=== PATIENT | male | born 1950 | race Hispanic/Latino ===

== ENCOUNTER 2018-06-16 09:49 | Inpatient (IN) | payer MEDICARE ==
[~2018-06-16] VITALS: Ht 175.3 cm; Wt 118.9 kg
--- NOTE | 2018-06-16 10:23 | NUR ---
SHANON NAVA IN TO [facility].
[2018-06-16 10:38] LABS: BASOPHILS # (AUTO) 0.1 (0.0-0.1); EOSINOPHILS # (AUTO) 0.2 (0.0-0.4); EOSINOPHILS % 3.8 % (0.0-6.0); HEMATOCRIT 42.7 % (38.2-49.6); HEMOGLOBIN 14.4 g/dL (14.0-18.0); LYMPHOCYTES # (AUTO) 0.9 (1.0-3.2); LYMPHOCYTES % 17.8 % (18.0-39.1); MEAN CORPUSCULAR HEMOGLOBIN 32.3 pg (28-32); MEAN CORPUSCULAR HGB CONC 33.7 g/dL (31-35); MEAN CORPUSCULAR VOLUME 95.7 fL (81-99); MONOCYTES # (AUTO) 0.3 (0.2-0.8); MONOCYTES % 6.7 % (4.4-11.3); NEUTROPHILS # (AUTO) 3.5 (2.1-6.9); NEUTROPHILS % 70.3 % (38.7-80.0); PLATELET COUNT 208 x10e3/uL (140-360); RED BLOOD COUNT 4.46 x10e6/uL (4.3-5.7); RED CELL DISTRIBUTION WIDTH 14.2 % (11.7-14.4)
[2018-06-16] MEDS ORDERED: LISINOPRIL30 MG PO (10:50)
[2018-06-16] MEDS ORDERED: ATENOLOL25 MG PO (10:50)
--- NOTE | 2018-06-16 10:50 | NUR ---
RADIOLOGY AT BEDSIDE FOR CXR AT THIS TIME/
[2018-06-16 10:57] LABS: CLARITY,URINE SL CLOUDY (CLEAR); COLOR,URINE YELLOW (YELLOW); KETONES,URINE NEGATIVE (NEGATIVE); LEUKOCYTE ESTERASE ,URINE NEGATIVE (NEGATIVE); NITRITE,URINE NEGATIVE (NEGATIVE); PROTEIN,URINE DIPSTICK NEGATIVE (NEGATIVE)
[2018-06-16 10:58] LABS: BILIRUBIN,URINE NEGATIVE (NEGATIVE); URINE UROBILINOGEN 0.2 mg/dL (0.2 - 1)
[2018-06-16 10:59] LABS: INR 0.94; PROTHROMBIN TIME 13.1 seconds (11.9-14.5)
[2018-06-16 11:00] LABS: PARTIAL THROMBOPLASTIN TIME 31.5 seconds (23.8-35.5)
[2018-06-16] MEDS ORDERED: ASPIRIN 81 MG CHEW TAB PO ONE (11:00)
[2018-06-16 11:05] LABS: ALANINE AMINOTRANSFERASE 45 IU/L (0-55); ALBUMIN 3.3 g/dL (3.5-5.0); ALBUMIN/GLOBULIN RATIO 1.2 (0.8-2.0); ALKALINE PHOSPHATASE 79 IU/L (40-150); ANION GAP 11.2 mmol/L (8-16); BLOOD UREA NITROGEN 13 mg/dL (7-26); BUN/CREATININE RATIO 17 (6-25); CALCIUM 8.9 mg/dL (8.4-10.2); CARBON DIOXIDE 23 mmol/L (22-29); CHLORIDE 109 mmol/L (98-107); CREATINE KINASE 89 IU/L (30-200); CREATININE, SERUM 0.77 mg/dL (0.72-1.25); EST GLOMERULAR FILTRATION RATE > 60 ML/MIN (60-); GLUCOSE 115 mg/dL (74-118); POTASSIUM 4.2 mmol/L (3.5-5.1); SODIUM 139 mmol/L (136-145)
[2018-06-16 11:14] LABS: EPITHELIAL CELLS,URINE RARE /LPF; WBC,URINE (MAN) 0-5 /HPF (0-5)
[2018-06-16] MEDS ORDERED: HYDRALAZINE HCL 20 MG/ML VIAL IV ONE (11:15)
[2018-06-16] MEDS ORDERED: HYDRALAZINE HCL 100 MG TABLET PO ONE (14:00)
--- NOTE | 2018-06-16 14:40 | Diagnostic Imaging Report ---
EXAM: CHEST SINGLE (PORTABLE) DATE: 06/16/2018 10:26 AM INDICATION: Shortness of breath COMPARISON: None FINDINGS: Lines and tubes: None Prominent cardiac silhouette, likely accentuated by low lung volumes. Mild atelectasis at the left lung base. No pulmonary consolidation, pleural effusion or pneumothorax. Upper abdomen unremarkable. No acute bony abnormality. IMPRESSION: Mild cardiomegaly. Focal atelectasis at the left lung base. No pulmonary consolidation or pleural effusion. Signed by: Dr. Rex Panda M.D. on 06/16/2018 2:37 PM
--- NOTE | 2018-06-16 15:21 | Diagnostic Imaging Report ---
EXAM: CT Chest WITH contrast 06/16/2018 11:53 AM INDICATION: Shortness of breath COMPARISON: Chest x-ray, 06/16/2018; CT abdomen/pelvis, 07/29/2009 (report only; images are not available on PACS) TECHNIQUE: Chest was scanned utilizing a multidetector helical scanner from the lung apex through the level of the diaphragm after administration of IV contrast. Thin section reconstructions were obtained with special concentration on the pulmonary arteries. Coronal and sagittal reformations were obtained. Pulmonary embolism protocol was performed. Dose modulation, iterative reconstruction, and/or weight based adjustment of the mA/kV was utilized to reduce the radiation dose to as low as reasonably achievable IV CONTRAST: 100 cc Isovue-370 RADIATION DOSE: Total DLP: 656.20 mGy*cm Estimated effective dose: (DLP x 0.014 x size factor) mSv COMPLICATIONS: None FINDINGS: LINES/ TUBES: None. LUNGS AND AIRWAYS: No filling defect is identified within the pulmonary arteries to the segmental level. There are patchy airspace opacities in the lower lobes which may represent atelectasis or interstitial edema. Trachea and main bronchi are clear. There is bilateral perihilar bronchial wall thickening. PLEURA: There is a small pleural effusion on the right and trace pleural fluid on the left. HEART AND MEDIASTINUM: The thyroid gland is normal. No mediastinal, hilar or axillary lymphadenopathy. There are scattered subcentimeter nodes in the mediastinum and a 1.5 cm node in the right hilum. A 1.5 cm lymph node in the inferior mediastinum adjacent to the distal esophagus appears stable from previous abdominal CT report. These may be reactive. There is mild cardiomegaly.. There is no pericardial effusion. The thoracic aorta is atherosclerotic with scattered calcified plaque. No dilatation of the thoracic aorta. The main pulmonary artery is not dilated and there are no filling defects in the main pulmonary arteries. UPPER ABDOMEN: Included portions of the liver, spleen, pancreas, and adrenals and kidneys show no focal abnormality. There is a small hiatus hernia. Contrast refluxes inferiorly from the right atrium into the hepatic veins. BONES: No acute or suspicious bony lesion. Degenerative changes are seen in the thoracic spine. SOFT TISSUES: Superficial surrounding soft tissue unremarkable. IMPRESSION: 1. No CT evidence for acute pulmonary embolism. No dilatation of the main pulmonary artery. 2. Patchy airspace opacities in both lungs, likely representing interstitial edema. There is a small right and trace left pleural effusion. Mild cardiomegaly. Contrast reflux from the right atrium downward into pulmonary veins suggests elevated right heart pressures or fluid overload. 3. Nonspecific mildly prominent lymph nodes in the right hilum and the lower paraesophageal mediastinum. Staff: Amarilys Signed by: Dr. Rex Panda M.D. on 06/16/2018 3:18 PM
--- OUTSIDE RECORDS SUMMARY | 2018-06-16 16:19 | XMS REPORT ---
Author Author [facility] Address Unknown Phone Unavailable Care Team Providers Care Farm Demonstrator Name Role Phone Nikolas WHEELER Unavailable Unavailable Problems This patient has no known problems. Allergies, Adverse Reactions, Alerts This patient has no known allergies or adverse reactions. Medications This patient has no known medications. Results Test Description Test Time Test Comments Text Results Atomic Results Result Comments CHEST SINGLE (PORTABLE) 2018-06-16 14:35:00 [place] [address] Patient Name: JENNIFER JAIMES MR #: [id number] : 1950 Age/Sex: 68/M Req #: [id number] Adm Physician: Ordered by: BRANDY CARDENAS MORTAR CARRIER Report #: [id number] Location: ER Room/Bed: Procedure: [id number] DX/CHEST SINGLE (PORTABLE) Exam Date: 06/16/18 Exam Time: 1045 REPORT STATUS: Signed EXAM: CHEST SINGLE (PORTABLE) DATE: 06/16/2018 10:26 AM INDICATION: Shortness of breath COMPARISON: None FINDINGS: Lines and tubes: None Prominent cardiac silhouette, likely accentuated by low lung volumes. Mild atelectasis at the left lung base. No pulmonary consolidation, pleural effusion or pneumothorax. Upper abdomen unremarkable. No acute bony abnormality. IMPRESSION: Mild cardiomegaly. Focal atelectasis at the left lung base. No pulmonary consolidation or pleural effusion. Signed by: Dr. Carmella Barajas M.D. on 06/16/2018 2:37 PM Dictated By: CARMELLA BARAJAS MD 36 Transcribed By: NELIA on 06/16/181436 COPY TO: BRANDY CARDENAS NP CT CHEST W 2018-06-16 14:34:00 [place] [address] Patient Name: JENNIFER JAIMES MR #: [id number] : 1950 Age/Sex: 68/M Req #: [id number] Adm Physician: Ordered by: BRANDY CARDENAS NP Report #: [id number] Location: ER Room/Bed: Procedure: [id number] CT/CT CHEST W Exam Date: 06/16/18 Exam Time: 1320 REPORT STATUS: Signed EXAM: CT Chest WITH contrast 06/16/2018 11:53 AM INDICATION: Shortness of breath COMPARISON: Chest x-ray, 06/16/2018; CT abdomen/pelvis, 07/29/2009 (report only; images are not available on PACS) TECHNIQUE: Chest was scanned utilizing a multidetector helical scanner from the lung apex through the level of the diaphragm after administration of IV contrast. Thin section reconstructions were obtained with special concentration on the pulmonary arteries. Coronal and sagittal reformations were obtained. Pulmonary embolism protocol was performed. Dose modulation, iterative reconstruction, and/or weight based adjustment of the mA/kV was utilized to reduce the radiation dose to as low as reasonably achievable IV CONTRAST: 100 cc Isovue-370 RADIATION DOSE: Total DLP: 656.20 mGy*cm Estimated effective dose: (DLP x 0.014 x size factor) mSv COMPLICATIONS: None FINDINGS: LINES/ TUBES: None. LUNGS AND AIRWAYS: No filling defect is identified within the pulmonary arteries to the segmental level. There are patchy airspace opacities in the lower lobes which may represent atelectasis or interstitial edema. Trachea and main bronchi are clear. There is bilateral perihilar bronchial wall thickening. PLEURA: There is a small pleural effusion on the right and trace pleural fluid on the left. HEART AND MEDIASTINUM: The thyroid gland is normal. No mediastinal, hilar or axillary lymphadenopathy. There are scattered subcentimeter nodes in the mediastinum and a 1.5 cm node in the right hilum. A 1.5 cm lymph node in the inferior mediastinum adjacent to the distal esophagus appears stable from previous abdominal CT report. These may be reactive. There is mild cardiomegaly.. There is no pericardial effusion. The thoracic aorta is atherosclerotic with scattered calcified plaque. No dilatation of the thoracic aorta. The main pulmonary artery is not dilated and there are no filling defects in the main pulmonary arteries. UPPER ABDOMEN: Included portions of the liver, spleen, pancreas, and adrenals and kidneys show no focal abnormality. There is a small hiatus hernia. Contrast refluxes inferiorly from the right atrium into the hepatic veins. BONES: No acute or suspicious bony lesion. Degenerative changes are seen in the thoracic spine. SOFT TISSUES: Superficial surrounding soft tissue unremarkable. IMPRESSION: 1. No CT evidence for acute pulmonary embolism. No dilatation of the main pulmonary artery. 2. Patchy airspace opacities in both lungs, likely representing interstitial edema. There is a small right and trace left pleural effusion. Mild cardiomegaly. Contrast reflux from the right atrium downward into pulmonary veins suggests elevated right heart pressures or fluid overload. 3. Nonspecific mildly prominent lymph nodes in the right hilum and the lower paraesophageal mediastinum. Staff: Amarilys Signed by: Dr. Carmella Barajas M.D. on 06/16/2018 3:18 PM Dictated By: CARMELLA BARAJAS MD [id number] Transcribed By: NELIA on 06/16/18 0415 COPY TO: BRANDY CARDENAS NP
[2018-06-16] MEDS ORDERED: SODIUM CHLORIDE 0.9% 50ML 50 ML ONE (16:23)
[2018-06-16] MEDS ORDERED: IOPAMIDOL 370 MG/ML 200 ML INFUS..BTL INJ ONE (16:23)
[2018-06-16] MEDS ORDERED: FUROSEMIDE INJ 10 MG/ML 4 ML VIAL IV SCH (17:00)
[2018-06-16] MEDS: FUROSEMIDE INJ 10 MG/ML 2 ML VIAL IV SCH (17:25)
[2018-06-16] MEDS ORDERED: NIFEDIPINE 10 MG CAP PO STA (18:03)
[2018-06-16] MEDS ORDERED: HYDRALAZINE HCL 20 MG/ML VIAL IV PRN (18:15)
[2018-06-16] MEDS ORDERED: NIFEDIPINE CR 30 MG TAB PO ONE (18:15)
--- NOTE | 2018-06-16 19:50 | NUR ---
Patient arrived to the unit via wheelchair from ED dept as new admit. Patient alert and oriented x3. Ambulatory in room prn. Diagnoses of CHF and A-fib. IV saline locked. On telemetry. Will monitor pt closely.
[2018-06-16 20:00] VITALS: BP 163/104
--- NOTE | 2018-06-16 21:00 | NUR ---
Nurse (Julius) spoke with Dr. Tarango (cardio) over the phone to notify that Dr. Arguello was consulted to see pt for reasons of CHF and A-fib. ordered Echo in AM and Metorprolol as needed.
[2018-06-16] MEDS: METOPROLOL TARTRATE INJ 1 MG/ML VIAL IV PRN (23:08)
[2018-06-17] VITALS (12 sets, daily range): BP systolic 112–151; BP diastolic 72–106
[2018-06-17 02:17] LABS: CREATINE KINASE MB 1.7 ng/mL (0-5.0)
[2018-06-17] MEDS ORDERED: NIFEDIPINE CR 30 MG TAB PO SCH (09:00)
[2018-06-17] MEDS ORDERED: NIFEDIPINE 10 MG CAP PO SCH (09:00)
[2018-06-17] MEDS ORDERED: METOPROLOL TARTRATE 25 MG TAB PO SCH (09:00)
[2018-06-17] MEDS: LISINOPRIL 2.5 MG TAB PO SCH (09:30)
[2018-06-17] MEDS: FUROSEMIDE INJ 10 MG/ML 2 ML VIAL IV SCH ×2 (09:30→18:32)
[2018-06-17 09:41] LABS: CREATINE KINASE MB 1.5 ng/mL (0-5.0)
[2018-06-17] MEDS ORDERED: MIDAZOLAM HCL 2 MG/2 ML VIAL ONE (11:26)
[2018-06-17] MEDS ORDERED: FENTANYL CITRATE/PF 100MCG/2 ML INJ ONE (11:27)
[2018-06-17] MEDS ORDERED: IOPAMIDOL 370 MG/ML 200 ML INFUS..BTL INJ ONE (11:27)
[2018-06-17] MEDS ORDERED: HEPARIN SOD/SOD CHLORIDE 2,000 ML ONE (11:27)
[2018-06-17] MEDS ORDERED: SODIUM CHLORIDE 0.9% 1000ML 1,000 ML ONE (11:27)
[2018-06-17] MEDS ORDERED: LIDOCAINE HCL 2% LOCAL 20 ML VIAL ONE (11:27)
--- NOTE | 2018-06-17 11:30 | NUR ---
Pt was consented for cardiac cath with Dr. Arguello for this morning. Pt has been NPO since this morning at 0700. Paperwork has been sent to [employer], per Dr Arguello.
--- NOTE | 2018-06-17 12:22 | NUR ---
1222 Received pt from tender labor Alvaro Velasquez . Identifier x2, [facility] no fix for LIfe vest evaluation. Back to baseline PERRLA Left iv at 75cchr site w/o s/s infiltraton Rt groin sheath stable No s/s bleeding.Respiration regular 98% RA Abdomen soft and non tender denies necessity to defecate or urinate. Voided 250cc Bilateral pedal pulses present bilateral 1+ x4 Pd/Dp slight swelling to feet. George Cath technologist pulled sheath stasis achieved at 1245pm (DOWN TIME TILL 1900pm)Denies CP or SOB, Report phoned to floor staff and review POC by Eva NAQVI Transported to floor care @1300pm with [employer] monitoring and RN escort on room air via hospital bed.
--- NOTE | 2018-06-17 13:00 | NUR ---
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 Pt had a left heart cath, insertion site to right groin, dressing is dry and intact. Pt denies any pain at this time. Pt is to have 6 hours bed rest, and IV fluids for X4 hours. Parole Agent for life vest came to see pt in recovery.
--- NOTE | 2018-06-17 13:40 | Consultation ---
DATE OF CONSULTATION: REASON FOR CONSULT: Atrial fibrillation. HISTORY OF PRESENT ILLNESS: Mr. Carrion is a 68-year-old gentleman with past medical history as listed below, apparently has been experiencing palpitations off and on for the last 2 to 3 weeks, which have been getting progressively worse. He also has been experiencing shortness of breath at rest and minimal exertion. He has been experiencing some discomfort in his chest, describes it as a vague pressure like sensation all across the chest, lasts for about 5-10 minutes, more so when he takes a deep breath and when he gets short winded. Since his symptoms got worse, he decided to come to the hospital. Denies any abdominal pain, vomiting, or diarrhea. He was noted to be in atrial fibrillation and was admitted to the hospital. REVIEW OF SYSTEMS: CONSTITUTIONAL: Has some fatigue and weakness. HEENT: No headache, blurring vision, seizure, or syncope. CARDIOVASCULAR: Has chest pain, has dyspnea, and some orthopnea. No PND. RESPIRATORY: No cough, fever, or expectoration. GI: No abdominal pain, vomiting, or diarrhea. : No dysuria, frequency, or incontinence. ALLERGIES: NO KNOWN DRUG ALLERGIES. MEDICATIONS: See list. PAST MEDICAL HISTORY: History of hypertension and history of "arrhythmias." PAST SURGICAL HISTORY: History of knee surgery and history of back surgery. SOCIAL HISTORY: The patient apparently has been drinking half to one bottle of wine for the last two years on a daily basis. Before that, he used to drink for more than 20 years. He does not smoke or use drugs. FAMILY HISTORY: His mother had some arrhythmias. PHYSICAL EXAMINATION: GENERAL: Obese gentleman, alert, oriented, not in obvious distress. VITAL SIGNS: Heart rate is 90, blood pressure is 135/84, respiratory rate is 20, and temperature is 96.9. HEENT: Atraumatic. NECK: No JVD, bruit, thyromegaly, or lymphadenopathy. CARDIOVASCULAR: First and second heart sounds heard. No murmurs, rubs, or gallops appreciated. CHEST: Decreased air entry at the bases. No adventitious sounds appreciated. ABDOMEN: Obese, nontender. EXTREMITIES: No edema. LABS: Sodium is 139, potassium 4.2, chloride is 109, bicarb is 23, BUN is 13, creatinine 0.7, and glucose 115. Hemoglobin is 14.4, hematocrit 42.7, platelets 208, and white count is 4.9. EKG shows atrial fibrillation at 82 beats per minute, normal axis, normal intervals, T-wave inversion in III. Troponins are 0.058, 0.062, and 0.061. BNP is 459. Chest x-ray shows mild cardiomegaly, focal atelectasis of the left base. CT chest; no CT evidence of acute pulmonary embolism, patchy airspace opacities likely interstitial edema, nonspecific mild prominent lymph nodes. IMPRESSION: 1. Atrial fibrillation. 2. Hypertension. 3. Congestive heart failure. 4. Obesity. 5. Alcoholism. PLAN: 1. IV diuresis. 2. Continue with metoprolol, LI inhibitors. Discontinue nifedipine due to CHF. 3. The patient's echocardiogram shows depressed LV function with ejection fraction 25% to 30%. 4. Anticoagulants. 5. Recommend cardiac cath and possible PCI. The patient has been explained about the procedure, risks, benefits, complications, and alternatives. He understands and agrees to it. 6. Low-salt diet and fluid restriction. 7. Further cardiac workup depending on clinical course. 8. The patient has been counseled on alcohol cessation. 9. Discussed my impression and plan of management with the patient and he understands. As always, I appreciate and thank you very much for your referrals. Fab Arguello MD SC/VÍCTOR /[id number]
[2018-06-17] MEDS: ACETAMINOPHEN 325 MG TAB PO PRN ×2 (15:46→22:38)
--- NOTE | 2018-06-17 16:59 | NUR ---
CASE MANAGEMENT INITIAL ASSESSMENT Laser Beam Cutter to bedside to discuss plan of care with patient/family. CM/SW role and care transitions discussed. Anticipated discharge plan discussed along with duration of care. CM/SW discussed patients right to make decisions in care. CM/SW work hours given. Patient lives: TIFFANY JAIMES Admit/Transfer: ER Hospital/ER visits since last admit:NONE POA/Emergency contact: TIFFANY JAIMES [phone] Current/Previous Home Health: NONE PCP/Follow-up Care: FAYE BECKWITH Current/Previous DME: NONE Medications (referring to index hospitalization or the first time you were in the hospital) a. Were changes made in your medications when you were in the hospital on [date of index hospitalization]? Yes No Not sure Explain: Note: If no or not sure, please skip to question d b. Did you understand the changes? Yes No Explain: c. Were you able to obtain your new medications right away? Yes No n/a SNF only Explain: d. Were you able to take your medications like the doctor wanted you to? TAKING MEDS PRESCRIBED BY PCP e. Did the hospital give you an accurate, easy to understand list of medications when you left? 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 Name and number was also written on the patients whiteboard. Patient verbalized understanding of discussion. CM will follow-up with ongoing discharge and transition of care needs.
[2018-06-17] MEDS: METOPROLOL TARTRATE INJ 1 MG/ML VIAL IV PRN ×2 (17:31→22:37)
[2018-06-17] MEDS: METOPROLOL TARTRATE 25 MG TAB PO SCH (18:32)
--- NOTE | 2018-06-17 19:20 | NUR ---
Received patient awake, family members at the bedside, no complaints of pain at this time, not in distress. Call light within easy reach, advised to call for assistance, will continue to monitor
[2018-06-18] VITALS (8 sets, daily range): BP systolic 128–145; BP diastolic 76–97
--- NOTE | 2018-06-18 00:03 | Operative Report ---
DATE OF PROCEDURE: 06/17/2018 SURGEON: Fab Arguello MD PROCEDURES: 1. Left heart catheterization. 2. Selective angiogram. 3. LV gram. INDICATION: Cardiomyopathy, chest pain. ANESTHESIA: 2% lidocaine for local anesthesia. Fentanyl and Versed for conscious sedation. DESCRIPTION OF PROCEDURE: After informed consent, the patient was brought to the cardiac catheterization laboratory and placed on the table. Both groins were prepped and draped in a sterile fashion. Lidocaine was injected in the right groin for local anesthesia. Right femoral artery was accessed by a Seldinger technique and a 5-St Lucian sheath was placed in the right femoral artery. Left main artery was cannulated using a JL4 5-St Lucian catheter. Coronary angiogram was performed and images were obtained in multiple views. Right coronary artery was cannulated using a 3DRC five-St Lucian catheter. Coronary angiogram was performed and images were obtained in multiple views. LV gram was performed using a pigtail catheter. The patient tolerated the procedure without any complication. REPORT: 1. Left main; normal caliber with luminal irregularities. 2. Left anterior descending; normal caliber with luminal irregularities. 3. Left circumflex; normal caliber with no significant stenosis. 4. Right coronary artery; normal caliber with luminal irregularities. 5. LV gram; diffuse hypokinesis of the left ventricle is noted. 6. Overall ejection fraction of 25% to 30%. HEMODYNAMICS: Aortic pressure is 135/90, LV pressure 135/-2, and LVEDP is 20. PLAN: Possible LifeVest and ICD down the line. Fab Arguello MD SC/MODL /[id number]
[2018-06-18] MEDS: METOPROLOL TARTRATE 25 MG TAB PO SCH ×4 (00:22→17:09)
--- NOTE | 2018-06-18 05:14 | History and Physical ---
CHIEF COMPLAINT: Palpitations. HISTORY OF PRESENT ILLNESS: This is a 68-year-old male with past medical history of hypertension and also a history of some sort of arrhythmia in the past with palpitation. Reports to the ED with complaints of 3- or 2-year history of palpitations that progressively got worse. He also experienced some shortness of breath and dyspnea on exertion. He noticed that he also had some vague chest pain that lasted 5 to 10 minutes. He also feels that he is short winded when he takes a deep breath. Due to the worsening of palpitations, he decided to come to the ED for further evaluation. REVIEW OF SYSTEMS: Pertinent Positives: Generalized weakness, fatigue, orthopnea, dyspnea on exertion, and palpitations. Pertinent Negatives: Denies any nausea, vomiting, diarrhea, dysuria, hematuria, frequency, urgency, lightheadedness, dizziness, abdominal pain, headaches, shortness of breath, cough, congestion, fever, or any other complaints. Rest of 14-point review of systems has been reviewed with the patient and is negative. ALLERGIES: NO KNOWN DRUG ALLERGIES. HOME MEDICATIONS: See med reconciliation form. PAST MEDICAL HISTORY: Hypertension, also history of possible in the past. PAST SURGICAL HISTORY: Knee surgery and back surgery. FAMILY HISTORY: Hypertension and diabetes. SOCIAL HISTORY: He does not smoke. He does drink alcohol daily for more than 20 plus years. Good social support. PHYSICAL EXAMINATION: VITAL SIGNS: Temperature is 96.9, pulse 105, respiratory rate is 20, blood pressure 144/92, and pulse ox 94% on room air. GENERAL APPEARANCE: In no acute distress. Alert and oriented x3. Cooperative on examination. HEENT: Head is normocephalic and atraumatic. Eyes, pupils equal, reactive to light bilaterally. Extraocular movements are intact bilaterally. No evidence of erythema or exudates in the posterior pharynx. Has poor dentition. NECK: Supple. Good range of motion. PULMONARY: Clear to auscultation. No wheezing, rales, or rhonchi. No crackles appreciated. CARDIOVASCULAR: Positive S1, S2. No murmurs, rubs, or gallops appreciated. ABDOMEN: Soft, nondistended, and nontender to palpation. Bowel sounds present. MUSCULOSKELETAL: Strength is 5/5 throughout. No evidence of any muscles deficits on examination. No weakness appreciated. NEUROLOGICAL: Cranial nerves II through XII grossly intact. No evidence of any neurological deficits on exam. SKIN: Intact. Warm to touch. Good cap refill. PSYCHIATRIC: Normal affect and mood. EXTREMITIES: No edema. Good range of motion throughout. LABORATORY DATA: Lab findings show white count 4.9, hemoglobin 14, hematocrit 43, and platelets of 208. Chemistries reviewed and are stable. IMPRESSION: 1. Atrial fibrillation with RVR. 2. Hypertension. 3. . 4. History of CHF. 5. Morbid obesity. 6. Chronic alcohol abuse. PLAN: At this time, the patient was scheduled for left heart catheterization . Continue symptomatic care. Continue to trend troponins. . Home medications were reviewed, which we will restart. We will get an A1c, lipid panel, and TSH level for the morning and we will continue symptomatic care. MD ARCHEI Choi/VÍCTOR /[id number]
[2018-06-18 06:11] LABS: BASOPHILS % 0.6 % (0.0-1.0); EOSINOPHILS # (AUTO) 0.1 (0.0-0.4); HEMATOCRIT 43.2 % (38.2-49.6); HEMOGLOBIN 14.7 g/dL (14.0-18.0); LYMPHOCYTES # (AUTO) 1.3 (1.0-3.2); LYMPHOCYTES % 27.3 % (18.0-39.1); MEAN CORPUSCULAR HEMOGLOBIN 32.1 pg (28-32); MEAN CORPUSCULAR VOLUME 94.3 fL (81-99); MONOCYTES # (AUTO) 0.5 (0.2-0.8); MONOCYTES % 9.7 % (4.4-11.3); NEUTROPHILS # (AUTO) 2.7 (2.1-6.9); NEUTROPHILS % 59.2 % (38.7-80.0); PLATELET COUNT 231 x10e3/uL (140-360); RED BLOOD COUNT 4.58 x10e6/uL (4.3-5.7); RED CELL DISTRIBUTION WIDTH 13.9 % (11.7-14.4)
[2018-06-18 06:25] LABS: ANION GAP 11.7 mmol/L (8-16); BLOOD UREA NITROGEN 15 mg/dL (7-26); BUN/CREATININE RATIO 18 (6-25); CALCIUM 8.6 mg/dL (8.4-10.2); CARBON DIOXIDE 27 mmol/L (22-29); CHLORIDE 100 mmol/L (98-107); CHOL/HDL RATIO 4.3 (3.9-4.7); CREATININE, SERUM 0.85 mg/dL (0.72-1.25); EST GLOMERULAR FILTRATION RATE > 60 ML/MIN (60-); GLUCOSE 99 mg/dL (74-118); POTASSIUM 3.7 mmol/L (3.5-5.1); SODIUM 135 mmol/L (136-145)
[2018-06-18 06:46] LABS: THYROID STIMULATING HORMONE 2.334 uIU/mL (0.350-4.940)
[2018-06-18] MEDS ORDERED: ATENOLOL 50 MG TAB PO SCH (09:00)
[2018-06-18] MEDS: LISINOPRIL 10 MG TAB PO SCH (09:08)
[2018-06-18] MEDS: LISINOPRIL 2.5 MG TAB PO SCH (09:09)
[2018-06-18] MEDS: FUROSEMIDE INJ 10 MG/ML 2 ML VIAL IV SCH ×2 (09:57→17:09)
[2018-06-18] MEDS: ACETAMINOPHEN 325 MG TAB PO PRN (10:03)
[2018-06-18] MEDS ORDERED: DOCUSATE SODIUM LIQD 100 MG/10 ML UDC NG SCH (10:30)
[2018-06-18] MEDS ORDERED: DOCUSATE SODIUM 100 MG CAP PO SCH (17:00)
[2018-06-18] MEDS ORDERED: DOCUSATE SODIUM 100 MG CAP PO PRN (17:00)
[2018-06-18] MEDS: RIVAROXABAN 20 MG TABLET PO SCH (17:09)
--- NOTE | 2018-06-18 18:12 | Progress Note ---
DATE: 06/18/2018 Medicine Progress Note SUBJECTIVE: The patient is reporting to do very well. Denies any chest pain at this time. The patient is getting his LifeVest today. PHYSICAL EXAMINATION: VITAL SIGNS: Temperature is 97.2, pulse 89, respiratory rate is 18, blood pressure 141/94, and his pulse ox 98% on room air. GENERAL: Not in acute distress. Alert and oriented x3. Cooperative on examination. HEENT: Head is normocephalic and atraumatic. Eyes, pupils equal, reactive to light bilaterally. Extraocular movements are intact bilaterally. Throat, no evidence of erythema or exudates in the posterior pharynx. Has poor dentition. NECK: Supple. Good range of motion. PULMONARY: Clear to auscultation. No wheezing, rales, or rhonchi. No crackles appreciated. CARDIOVASCULAR: Positive S1, S2. No murmurs, rubs, or gallops appreciated. ABDOMEN: Soft, nondistended, and nontender to palpation. Bowel sounds present. MUSCULOSKELETAL: Strength is 5/5 throughout. No evidence of any muscle deficits on examination. No weakness appreciated. NEUROLOGICAL: Cranial nerves II through XII grossly intact. No evidence of any neurological deficits on exam. SKIN: Intact. Warm to touch. Good cap refill. PSYCHIATRIC: Normal affect and mood. EXTREMITIES: No edema. Good range of motion throughout. LABORATORY DATA: Lab findings show white count 4.6, hemoglobin 14, hematocrit is 43, platelets of 231. Chemistry; sodium 135, potassium 3.7, chloride , bicarb 27, anion gap is 11, BUN is 15, creatinine is 0.85, glucose is 99. Urinalysis is found to be negative. MICROBIOLOGY: None. IMAGING STUDIES: None. IMPRESSION: 1. Atrial fibrillation with rapid ventricular response. Now rate is better controlled. 2. Diffuse coronary artery disease with ejection fraction of 25% to 30% with systolic dysfunction. 3. Morbid obesity. 4. Hypertension. 5. Chronic alcohol abuse. PLAN: At this time left heart catheterization was performed yesterday on 06/17/2018, with an EF of 25% to 30%, which he has systolic dysfunction with diffuse hypokinesis. At this time, LifeVest has been ordered and he is in the process of getting education as we speak. He will need an ICD in the future. We will continue same cardioprotective medications at this time with aspirin, statin, and beta blockade. His labs were reviewed already and his medications were reviewed. He is already on Xarelto restarted by Cardiology. MD ARCHIE Choi/VÍCTOR /[id number]
--- NOTE | 2018-06-18 19:25 | NUR ---
PATIENT IS IN STABLE CONDITION WITH NO S/S OF RESPIRATORY DISTRESS. NO PAIN VOICED. IV SALIN LOCKED. CALL LIGHT IS WITHIN REACH, PATIENT INSTRUCTED TO CALL FOR ASSISTANCE NEEDED. FAMILY MEMBER PRESENT IN ROOM. BEDSIDE REPORT COMPLETED WITH ONCOMING NURSE.
[2018-06-19] VITALS (8 sets, daily range): BP systolic 118–145; BP diastolic 60–82
[2018-06-19] MEDS: METOPROLOL TARTRATE 25 MG TAB PO SCH ×4 (00:15→17:48)
[2018-06-19 07:07] LABS: HEMATOCRIT 41.8 % (38.2-49.6); HEMOGLOBIN 14.5 g/dL (14.0-18.0); MEAN CORPUSCULAR HEMOGLOBIN 32.5 pg (28-32); MEAN CORPUSCULAR HGB CONC 34.7 g/dL (31-35); MEAN CORPUSCULAR VOLUME 93.7 fL (81-99); PLATELET COUNT 221 x10e3/uL (140-360); RED BLOOD COUNT 4.46 x10e6/uL (4.3-5.7); RED CELL DISTRIBUTION WIDTH 13.8 % (11.7-14.4)
[2018-06-19 07:25] LABS: ANION GAP 11.6 mmol/L (8-16); BLOOD UREA NITROGEN 18 mg/dL (7-26); BUN/CREATININE RATIO 23 (6-25); CALCIUM 8.4 mg/dL (8.4-10.2); CARBON DIOXIDE 26 mmol/L (22-29); CHLORIDE 102 mmol/L (98-107); EST GLOMERULAR FILTRATION RATE > 60 ML/MIN (60-); GLUCOSE 102 mg/dL (74-118); POTASSIUM 3.6 mmol/L (3.5-5.1); SODIUM 136 mmol/L (136-145)
[2018-06-19] MEDS: FUROSEMIDE INJ 10 MG/ML 2 ML VIAL IV SCH ×2 (08:57→17:48)
[2018-06-19] MEDS: LISINOPRIL 10 MG TAB PO SCH (08:57)
--- NOTE | 2018-06-19 15:30 | Progress Note ---
DATE: 06/19/2018 Medicine Progress Note SUBJECTIVE: The patient today reports that he does not want to use the LifeVest, instead he says that he works daily and he would like to have the ICD placed here. Cardiology has been aware and they are going to come talk with him and see what is the next plan of care for him. Otherwise, he is currently doing well. He is chest pain free with no other complaints. PHYSICAL EXAMINATION: VITAL SIGNS: Temperature is 95.9, pulse 82, respiration rate 18, blood pressure 137/82, pulse ox 94% on room air. GENERAL: Not in acute distress. Alert and oriented x3. Cooperative on examination. HEENT: Head is normocephalic and atraumatic. Eyes, pupils equal, reactive to light bilaterally. Extraocular movements are intact bilaterally. Throat, no evidence of erythema or exudates in the posterior pharynx. Has poor dentition. NECK: Supple. Good range of motion. PULMONARY: Clear to auscultation bilaterally. No wheezing, rales, or rhonchi. No crackles appreciated. CARDIOVASCULAR: Positive S1, S2. No murmurs, rubs, or gallops appreciated. ABDOMEN: Soft, nondistended, and nontender to palpation. Bowel sounds present. MUSCULOSKELETAL: Strength is 5/5 throughout. No evidence of any muscle deficits on examination. No weakness appreciated. NEUROLOGICAL: Cranial nerves II through XII grossly intact. No evidence of any neurological deficits on exam. SKIN: Intact. Warm to touch. Good cap refill. PSYCHIATRIC: Normal affect and mood. EXTREMITIES: No edema. Good range of motion throughout. LABORATORY DATA: Lab findings show white count of 4.5, hemoglobin of 14, hematocrit is 42, platelets are 221. Coagulation is all stable. Chemistry; sodium is 136, potassium 3.6, chloride 102, bicarb is 26, anion gap of 11, BUN is 18, creatinine is 0.8. Glucose is 23. Hemoglobin A1c 5.3, LDL 111. MICROBIOLOGY: None. IMAGING STUDIES: None. IMPRESSION: 1. Atrial fibrillation with rapid ventricular response, today with an episodes of elevated heart rate. 2. Diffuse coronary artery disease with ejection fraction of 25% to 30% with systolic dysfunction. 3. Morbid obesity. 4. Hypertension. 5. Chronic alcohol abuse. PLAN: At this time, the patient had a left heart catheterization performed on 06/17/2018, EF of 25% to 30%. The patient received the LifeVest, but now he refuses it because he says he works all the time and it is going to be very difficult being this way. He really wants to talk to Cardiology of possible ICD. At this time, Cardiology has been notified, they are going to come talk with him as well. Continue with cardioprotective meds, aspirin, statin, and beta-blockade. He is already on Xarelto per cardiac recommendations. At this time, we will await for final Cardiology recommendations and move from there. MD ARCHIE Choi/VÍCTOR /[id number]
[2018-06-19] MEDS: RIVAROXABAN 20 MG TABLET PO SCH (17:48)
--- NOTE | 2018-06-19 19:28 | NUR ---
PATIENT IS IN STABLE CONDITION WITH NO S/S OF RESPIRATORY DISTRESS. NO PAIN VOICED. TELEMETRY APPLIED. FAMILY MEMBER PRESENT IN ROOM. CALL LIGHT IS WITHIN REACH- PATIENT INSTRUCTED TO CALL FOR ASSISTANCE NEEDED. BEDSIDE REPORT GIVEN TO ONCOMING NURSE.
[2018-06-20] VITALS: BP 138/77
[2018-06-20] MEDS: METOPROLOL TARTRATE 25 MG TAB PO SCH ×2 (00:45→05:47)
[2018-06-20 04:00] VITALS: BP 135/76
[2018-06-20 07:25] VITALS: BP 131/77
[2018-06-20 08:06] VITALS: BP 131/77
[2018-06-20] MEDS: LISINOPRIL 10 MG TAB PO SCH (09:00)
[2018-06-20] MEDS ORDERED: METOPROLOL TARTRATE 25 MG TAB PO SCH (09:00)
[2018-06-20] MEDS: FUROSEMIDE INJ 10 MG/ML 2 ML VIAL IV SCH (09:00)
--- NOTE | 2018-06-20 11:50 | NUR ---
PT DISCHARGED HOME ,IV DCD WITHOUT REDNESS OR SWELLING,PRESCRIPTIONS AND INSTRUCTIONS GIVEN COPY ON CHART,LIFE EST IN PLACE.TRANSPORTED TO [facility] VIA W/C
[2018-06-20 12:22] VITALS: BP 122/79
[2018-06-20] MEDS ORDERED: LOPRESSOR25 MG PO (12:23)
[2018-06-20] MEDS ORDERED: XARELTO10 MG PO (12:24)
--- NOTE | 2018-06-20 17:05 | NUR ---
CASE MANAGEMENT INITIAL ASSESSMENT Sanitation Laborer to bedside to discuss plan of care with patient/family. CM/SW role and care transitions discussed. Anticipated discharge plan discussed along with duration of care. CM/SW discussed patients right to make decisions in care. CM/SW work hours given. Patient lives: [place] [address] HOME Admit/Transfer: ER Hospital/ER visits since last admit: NONE POA/Emergency contact: JOSE JAIMES [phone] Current/Previous Home Health: NONE PCP/Follow-up Care: VIOLETA CARROLL Current/Previous DME: NONE Other Services: NONE Employment Status: [employer] Areas of Concerns: NONE Referral Needs: NONE Education Needs: NONE IMM/ROWAN given and signed (if applicable): IMM EXPLAINED. PT VERBALIZED UNDERSTANDING. SIGNED BY PT. COPY GIVEN TO PT AND COPY TO CHART. Goal for discharge: HOME CM/SW left business card at the bedside with contact information. Name and number was also written on the patients whiteboard. Patient verbalized understanding of discussion. CM will follow-up with ongoing discharge and transition of care needs.
--- NOTE | 2018-06-21 03:23 | Discharge Summary ---
FINAL DISCHARGE DIAGNOSES: 1. Atrial fibrillation with RVR, now improved with rate control medications and oral Xarelto on discharge. 2. Status post left heart catheterization with an EF of 25-30% with systolic dysfunction with acute congestive heart failure, requiring LifeVest on discharge. 3. Morbid obesity. 4. Hypertension. 5. Chronic alcohol abuse. 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 PHYSICAL EXAMINATION: VITAL SIGNS: Temperature is 97.4, pulse 78, respiratory rate is 17, blood pressure 122/79, and pulse ox 97% on room air. LAB FINDINGS: Show white count 4.5 with a hemoglobin of 14, hematocrit , and platelets of 221. Coagulations were normal. Chemistry; sodium 136, potassium 3.6, chloride 102, bicarb 26, anion gap 11, BUN is 18, creatinine is 0.8, glucose is 102, calcium is 8.4, and LDL was 111. TSH 2.3. MICROBIOLOGY: None. IMAGING STUDIES: Chest x-ray shows some cardiomegaly. No edema. CT chest, no evidence of pulmonary embolism. There is no evidence of interstitial pulmonary edema. HOSPITAL COURSE: This is a 68-year-old male, who came into the ED with complaints of chest pain and palpitations. Cardiology was consulted. The patient was found to be in atrial fibrillation with RVR on admission. The patient was started on rate control medications and anticoagulation. The patient also underwent a left heart catheterization with no stents placed, but found to have an EF of 25-30%. At this time, Cardiology recommended medical management and recommended a LifeVest on discharge. LifeVest was delivered to the patient at his bedside. The patient was then discharged on cardioprotective medications with aspirin, statin, LI inhibitor, beta pieter, as well as Xarelto for his underlying atrial fibrillation. I discussed the case with Cardiology and cleared the patient for discharge home. His hospital course was prolonged, as initially he did not want the LifeVest, but then agreed to put the LifeVest on. He was also found to be hyperlipidemic in which he was started on oral statin. On discharge, patient had no more chest pain with no other complaints. On the day of discharge, vital signs stable, labs being stable. The patient is seen, evaluated, and examined thoroughly on the day of discharge. No other complaints. The patient verbalized understanding and agreed to plan of care. Followup appointment as an outpatient with the primary care physician in 1 week and the feed elevator worker in 1 week time. The patient was back to normal baseline prior to being discharged home and denies any other thing at this time. MEDICATIONS: See med reconciliation form including aspirin, Xarelto, lisinopril, metoprolol, and Lipitor, which were all written for him upon discharge. DISPOSITION: Home. CONDITION: Stable. DIET: Heart healthy. In any event of worsening symptoms, the patient is advised to come back to the ED for further evaluation. Discharge summary took greater than 35 minutes. MD ARCHIE Choi/MODDavid /[id number]
== END 2018-06-20 13:15 | disposition home or self-care (01) | DRG 286 ==
LOC: ER 09:49 → ERHOLD 15:50 → MED/SURG3 18:47 → ERHOLD 19:14 → MED/SURG3 19:47 → OBSVTOIN 06-19 16:31
PROVIDERS: ADMIT Internal Medicine; ATTEND Internal Medicine
PROC: 4A023N7 Measurement of Cardiac Sampling and Pressure, Left Heart, Percutaneous Approach (ICD-10-PCS; principal; 2018-06-17)
PROC: B2111ZZ Fluoroscopy of Multiple Coronary Arteries using Low Osmolar Contrast (ICD-10-PCS; 2018-06-17)
PROC: B2151ZZ Fluoroscopy of Left Heart using Low Osmolar Contrast (ICD-10-PCS; 2018-06-17)
DX: I48.91 Unspecified atrial fibrillation (principal); I50.23 Acute on chronic systolic (congestive) heart failure; I11.0 Hypertensive heart disease with heart failure; F10.20 Alcohol dependence, uncomplicated; E66.01 Morbid (severe) obesity due to excess calories; Z68.38 Body mass index [BMI] 38.0-38.9, adult; I42.9 Cardiomyopathy, unspecified; I25.10 Atherosclerotic heart disease of native coronary artery without angina pectoris
CPT/HCPCS: 36415; 71045; 71260; 80048; 80053; 80061; 81001; 82550; 82553; 83036; 83880; 84443; 84484; 85007; 85025; 85027; 85379; 85610; 85730; 93005; 93306; 93458; 99285; G0378; J0360; J1940; J2001; J2250; J7030; Q9967

== ENCOUNTER 2021-02-07 11:55 | Emergency (ER) | payer OTHER, MEDICARE ==
[~2021-02-07] VITALS: Ht 175.3 cm; Wt 118.8 kg
[~2021-02-07 11:55] MED LIST: ATENOLOL25 MG PO; LISINOPRIL30 MG PO; LOPRESSOR25 MG PO; XARELTO10 MG PO
[2021-02-07] MEDS ORDERED: ACETAMINOPHEN 325 MG TAB PO ONE (12:15)
== END 2021-02-07 15:15 | disposition home or self-care (01) ==
LOC: ER 12:12
DX: S52.502A Unspecified fracture of the lower end of left radius, initial encounter for closed fracture (principal); W01.0XXA Fall on same level from slipping, tripping and stumbling without subsequent striking against object, initial encounter; Y93.01 Activity, walking, marching and hiking; I10 Essential (primary) hypertension; I48.91 Unspecified atrial fibrillation
CPT/HCPCS: 99284

== ENCOUNTER 2022-02-09 18:26 | Inpatient (IN) | payer MEDICARE, OTHER ==
[~2022-02-09] VITALS: Ht 175.3 cm; Wt 113.4 kg
[2022-02-09] MEDS ORDERED: SODIUM CHLORIDE 0.9% 1000ML 1,000 ML IV ONE (19:00)
[2022-02-09] MEDS ORDERED: ACETAMINOPHEN 325 MG TAB PO ONE (19:00)
[2022-02-09] MEDS ORDERED: IBUPROFEN 600 MG TAB PO STA (19:06)
[2022-02-09 19:24] LABS: BASOPHILS % 0.4 % (0.0-1.0); EOSINOPHILS % 0.2 % (0.0-6.0); HEMATOCRIT 41.4 % (38.2-49.6); HEMOGLOBIN 13.8 g/dL (14.0-18.0); LYMPHOCYTES # (AUTO) 0.7 (1.0-3.2); LYMPHOCYTES % 6.7 % (18.0-39.1); MEAN CORPUSCULAR HEMOGLOBIN 31.2 pg (28-32); MEAN CORPUSCULAR HGB CONC 33.3 g/dL (31-35); MEAN CORPUSCULAR VOLUME 93.5 fL (81-99); MONOCYTES # (AUTO) 0.8 (0.2-0.8); MONOCYTES % 7.7 % (4.4-11.3); NEUTROPHILS # (AUTO) 9.1 (2.1-6.9); NEUTROPHILS % 84.7 % (38.7-80.0); PLATELET COUNT 216 x10e3/uL (140-360); RED BLOOD COUNT 4.43 x10e6/uL (4.3-5.7); RED CELL DISTRIBUTION WIDTH 13.9 % (11.7-14.4)
[2022-02-09 19:41] LABS: ALBUMIN 3.7 g/dL (3.5-5.0); ALBUMIN/GLOBULIN RATIO 0.9 (0.8-2.0); ANION GAP 18.6 mmol/L (8-16); CALCIUM 8.7 mg/dL (8.4-10.2); CREATININE, SERUM 0.82 mg/dL (0.72-1.25); POTASSIUM 3.6 mmol/L (3.5-5.1)
[2022-02-09 19:48] LABS: CREATINE KINASE MB 1.7 ng/mL (0-5.0)
[2022-02-09] MEDS ORDERED: METOPROLOL TARTRATE INJ 1 MG/ML VIAL IV ONE (20:45)
[2022-02-09] MEDS ORDERED: METOPROLOL TARTRATE INJ 1 MG/ML VIAL ONE (20:53)
[2022-02-09 21:09] LABS: CLARITY,URINE SL CLOUDY (CLEAR); COLOR,URINE YELLOW (YELLOW); KETONES,URINE 2+ (NEGATIVE); LEUKOCYTE ESTERASE ,URINE NEGATIVE (NEGATIVE); NITRITE,URINE NEGATIVE (NEGATIVE); PROTEIN,URINE DIPSTICK TRACE (NEGATIVE); URINE UROBILINOGEN 1 mg/dL (0.2 - 1)
[2022-02-09 21:22] LABS: BACTERIA,URINE RARE /HPF; WBC,URINE (MAN) 0-5 /HPF (0-5)
[2022-02-09] MEDS ORDERED: AMIODARONE HCL 150 MG/100 ML BAG IV ONE (21:30)
[2022-02-09] MEDS ORDERED: AMIODARONE 900MG 900 MG in Premix Bag 1 BAG IV ONE (21:30)
[2022-02-09] MEDS ORDERED: AMIODARONE 900MG 500 ML IV ONE (21:37)
[2022-02-09] MEDS ORDERED: AMIODARONE HCL 100 ML IV ONE (21:37)
[2022-02-09] MEDS ORDERED: SODIUM CHLORIDE FLUSH 10 ML SYR INJ PRN (21:45)
[2022-02-09] MEDS ORDERED: ONDANSETRON HCL INJ 2MG/ML 2ML 2 MG/ML VIAL IV PRN (21:45)
[2022-02-09 22:45] VITALS: BP 115/76
[2022-02-09 23:00] VITALS: BP 122/82
[2022-02-09 23:15] VITALS: BP 151/99
[2022-02-09 23:30] VITALS: BP 125/80
[2022-02-09 23:45] VITALS: BP 125/69
[2022-02-10] VITALS (45 sets, daily range): BP systolic 123–181; BP diastolic 64–110
[2022-02-10] MEDS: ACETAMINOPHEN 325 MG TAB PO PRN ×2 (05:17→18:10)
[2022-02-10 06:04] LABS: CHOL/HDL RATIO 2.9 (3.9-4.7)
[2022-02-10 06:11] LABS: CREATINE KINASE MB 1.8 ng/mL (0-5.0)
[2022-02-10] MEDS ORDERED: METOPROLOL TARTRATE 25 MG TAB PO SCH (09:00)
[2022-02-10 10:48] LABS: FREE THYROXINE INDEX 1.9725 (1.4-3.8); THYROID STIMULATING HORMONE 0.603 uIU/mL (0.350-4.940)
[2022-02-10] MEDS: METOPROLOL TARTRATE 25 MG TAB PO SCH ×2 (12:08→18:09)
[2022-02-10 14:00] LABS: CREATINE KINASE MB 1.7 ng/mL (0-5.0)
[2022-02-10] MEDS ORDERED: LISINOPRIL 10 MG TAB PO ONE (15:00)
[2022-02-10] MEDS ORDERED: LISINOPRIL 20 MG TAB PO ONE (15:00)
[2022-02-10] MEDS ORDERED: CHLORDIAZEPOXIDE HCL 25 MG CAP PO PRN (15:30)
[2022-02-10] MEDS: MULTIVITAMINS- 12 INJECTION 10 ML, FOLIC ACID MDV 1 MG, THIAMINE HCL INJ 100 MG in SODI... IV SCH (16:43)
[2022-02-10] MEDS: ACETAMIN/BUTALBITAL/CAFFEINE TAB PO PRN (16:43)
[2022-02-10] MEDS: RIVAROXABAN 10 MG TABLET PO SCH (18:09)
[2022-02-10] MEDS: MELATONIN 3 MG TAB PO SCH (20:33)
[2022-02-10] MEDS: LORAZEPAM 0.5 MG TAB PO PRN (20:33)
[2022-02-11] VITALS (60 sets, daily range): BP systolic 123–191; BP diastolic 61–132
[2022-02-11 06:27] LABS: BASOPHILS % 0.2 % (0.0-1.0); HEMATOCRIT 42.2 % (38.2-49.6); HEMOGLOBIN 13.9 g/dL (14.0-18.0); LYMPHOCYTES # (AUTO) 0.8 (1.0-3.2); LYMPHOCYTES % 8.1 % (18.0-39.1); MEAN CORPUSCULAR HEMOGLOBIN 30.9 pg (28-32); MEAN CORPUSCULAR HGB CONC 32.9 g/dL (31-35); MEAN CORPUSCULAR VOLUME 93.8 fL (81-99); MONOCYTES # (AUTO) 0.8 (0.2-0.8); NEUTROPHILS # (AUTO) 7.7 (2.1-6.9); NEUTROPHILS % 82.4 % (38.7-80.0); PLATELET COUNT 202 x10e3/uL (140-360); RED CELL DISTRIBUTION WIDTH 13.4 % (11.7-14.4)
[2022-02-11] MEDS: MULTIVITAMINS- 12 INJECTION 10 ML, FOLIC ACID MDV 1 MG, THIAMINE HCL INJ 100 MG in SODI... IV SCH ×2 (06:29→21:15)
[2022-02-11] MEDS: SODIUM CHLORIDE 0.9% 1000ML 1,000 ML IV SCH ×2 (06:30→19:20)
[2022-02-11 06:36] LABS: ALBUMIN 3.3 g/dL (3.5-5.0); ALBUMIN/GLOBULIN RATIO 0.8 (0.8-2.0); ANION GAP 17.3 mmol/L (8-16); CALCIUM 8.7 mg/dL (8.4-10.2); CREATININE, SERUM 0.8 mg/dL (0.72-1.25); POTASSIUM 3.3 mmol/L (3.5-5.1)
[2022-02-11 07:07] LABS: CREATINE KINASE MB 1.1 ng/mL (0-5.0)
[2022-02-11] MEDS: PANTOPRAZOLE SOD 40 MG TABEC PO SCH (08:21)
[2022-02-11] MEDS: LISINOPRIL 10 MG TAB PO SCH (08:21)
[2022-02-11] MEDS: METOPROLOL TARTRATE 25 MG TAB PO SCH ×3 (08:22→17:16)
[2022-02-11] MEDS ORDERED: ARTIFICIAL TEARS (OPTH) 15 ML BTL OU PRN (08:45)
[2022-02-11] MEDS ORDERED: EYE LUBRICANT OPTH OINT 3.5GM TUBE OP PRN (09:45)
[2022-02-11] MEDS ORDERED: IOPAMIDOL 370 MG/ML 100 ML INFUS..BTL INJ ONE (10:01)
[2022-02-11] MEDS: LORAZEPAM 0.5 MG TAB PO PRN (11:10)
[2022-02-11] MEDS: ACETAMIN/BUTALBITAL/CAFFEINE TAB PO PRN (11:14)
[2022-02-11] MEDS: HYDRALAZINE HCL 20 MG/ML VIAL IV PRN ×2 (13:24→17:26)
[2022-02-11] MEDS: RIVAROXABAN 10 MG TABLET PO SCH (16:56)
[2022-02-11] MEDS ORDERED: DIGOXIN INJ 0.25 MG/ML 2 ML AMP IV ONE (17:00)
[2022-02-11] MEDS ORDERED: DILTIAZEM HCL 125 ML IV PRN (17:00)
[2022-02-11 17:13] LABS: FREE T4 (FREE THYROXINE) 0.91 ng/dL (0.8-1.8); THYROID STIMULATING HORMONE 0.565 uIU/mL (0.350-4.940)
[2022-02-11] MEDS ORDERED: DILTIAZEM HCL IV SOLN 125 MG in SODIUM CHLORIDE 0.9% 100 ML IV PRN (17:30)
[2022-02-11] MEDS: MELATONIN 3 MG TAB PO SCH (21:15)
[2022-02-11] MEDS: TAMSULOSIN HCL 0.4 MG CAP PO SCH (21:15)
[2022-02-11] MEDS: CHLORDIAZEPOXIDE HCL 25 MG CAP PO SCH (21:47)
[2022-02-12] VITALS (61 sets, daily range): BP systolic 99–156; BP diastolic 52–123
[2022-02-12] MEDS: METOPROLOL TARTRATE 25 MG TAB PO SCH ×2 (00:22→05:42)
[2022-02-12] MEDS: CHLORDIAZEPOXIDE HCL 25 MG CAP PO SCH ×3 (05:41→21:54)
[2022-02-12 06:31] LABS: BASOPHILS % 0.4 % (0.0-1.0); EOSINOPHILS % 0.3 % (0.0-6.0); HEMATOCRIT 37.9 % (38.2-49.6); HEMOGLOBIN 13.5 g/dL (14.0-18.0); LYMPHOCYTES # (AUTO) 0.6 (1.0-3.2); LYMPHOCYTES % 6.8 % (18.0-39.1); MEAN CORPUSCULAR HEMOGLOBIN 31.2 pg (28-32); MEAN CORPUSCULAR HGB CONC 35.6 g/dL (31-35); MEAN CORPUSCULAR VOLUME 87.5 fL (81-99); MONOCYTES # (AUTO) 0.8 (0.2-0.8); NEUTROPHILS # (AUTO) 7.6 (2.1-6.9); NEUTROPHILS % 83.2 % (38.7-80.0); PLATELET COUNT 206 x10e3/uL (140-360); RED BLOOD COUNT 4.33 x10e6/uL (4.3-5.7); RED CELL DISTRIBUTION WIDTH 13.5 % (11.7-14.4)
[2022-02-12 07:19] LABS: ALBUMIN 2.8 g/dL (3.5-5.0); ALBUMIN/GLOBULIN RATIO 0.7 (0.8-2.0); ANION GAP 16.1 mmol/L (8-16); CALCIUM 8.1 mg/dL (8.4-10.2); CREATININE, SERUM 0.84 mg/dL (0.72-1.25); POTASSIUM 3.1 mmol/L (3.5-5.1)
[2022-02-12] MEDS: PANTOPRAZOLE SOD 40 MG TABEC PO SCH (07:26)
[2022-02-12] MEDS: ACETAMINOPHEN 325 MG TAB PO PRN ×2 (07:39→13:06)
[2022-02-12] MEDS: AMIODARONE HCL 200 MG TAB PO SCH (08:11)
[2022-02-12] MEDS: POTASSIUM CHLORIDE 20MEQ/100ML 100 ML IV SCH ×2 (08:12→10:10)
[2022-02-12] MEDS: LISINOPRIL 10 MG TAB PO SCH (08:12)
[2022-02-12] MEDS: METOPROLOL TARTRATE 50 MG TAB PO SCH ×2 (09:39→17:02)
[2022-02-12] MEDS: SODIUM CHLORIDE 0.9% 1000ML 1,000 ML IV SCH ×2 (10:52→20:52)
[2022-02-12] MEDS: DILTIAZEM HCL 30 MG TAB PO SCH ×2 (11:56→17:02)
[2022-02-12] MEDS ORDERED: IOPAMIDOL 370 MG/ML 100 ML INFUS..BTL INJ ONE (13:53)
[2022-02-12] MEDS: IBUPROFEN 400 MG TAB PO PRN (16:59)
[2022-02-12] MEDS: MULTIVITAMINS- 12 INJECTION 10 ML, FOLIC ACID MDV 1 MG, THIAMINE HCL INJ 100 MG in SODI... IV SCH ×2 (17:12→20:53)
[2022-02-12] MEDS: MELATONIN 3 MG TAB PO SCH (21:02)
[2022-02-12] MEDS: TAMSULOSIN HCL 0.4 MG CAP PO SCH (21:02)
[2022-02-13] VITALS (25 sets, daily range): BP systolic 104–171; BP diastolic 51–96
[2022-02-13] MEDS: DILTIAZEM HCL 30 MG TAB PO SCH ×5 (00:05→23:57)
[2022-02-13] MEDS: ACETAMIN/BUTALBITAL/CAFFEINE TAB PO PRN ×2 (02:00→07:57)
[2022-02-13] MEDS: CHLORDIAZEPOXIDE HCL 25 MG CAP PO SCH ×3 (05:38→21:25)
[2022-02-13 06:21] LABS: BASOPHILS % 0.5 % (0.0-1.0); EOSINOPHILS # (AUTO) 0.1 (0.0-0.4); EOSINOPHILS % 0.8 % (0.0-6.0); HEMATOCRIT 38.2 % (38.2-49.6); HEMOGLOBIN 12.9 g/dL (14.0-18.0); LYMPHOCYTES # (AUTO) 0.6 (1.0-3.2); LYMPHOCYTES % 7.5 % (18.0-39.1); MEAN CORPUSCULAR HEMOGLOBIN 30.8 pg (28-32); MEAN CORPUSCULAR HGB CONC 33.8 g/dL (31-35); MEAN CORPUSCULAR VOLUME 91.2 fL (81-99); MONOCYTES # (AUTO) 0.6 (0.2-0.8); MONOCYTES % 8.5 % (4.4-11.3); NEUTROPHILS # (AUTO) 6.2 (2.1-6.9); NEUTROPHILS % 82.4 % (38.7-80.0); PLATELET COUNT 207 x10e3/uL (140-360); RED BLOOD COUNT 4.19 x10e6/uL (4.3-5.7); RED CELL DISTRIBUTION WIDTH 13.3 % (11.7-14.4)
[2022-02-13 06:36] LABS: ALBUMIN 2.5 g/dL (3.5-5.0); ALBUMIN/GLOBULIN RATIO 0.6 (0.8-2.0); ANION GAP 15.5 mmol/L (8-16); CALCIUM 8.1 mg/dL (8.4-10.2); CREATININE, SERUM 0.77 mg/dL (0.72-1.25); MAGNESIUM 1.8 MG/DL (1.3-2.1); POTASSIUM 3.5 mmol/L (3.5-5.1)
[2022-02-13] MEDS: AMIODARONE HCL 200 MG TAB PO SCH (07:57)
[2022-02-13] MEDS: PANTOPRAZOLE SOD 40 MG TABEC PO SCH (07:57)
[2022-02-13] MEDS: METOPROLOL TARTRATE 50 MG TAB PO SCH ×2 (07:58→16:58)
[2022-02-13] MEDS: LISINOPRIL 10 MG TAB PO SCH (08:00)
[2022-02-13] MEDS ORDERED: DIGOXIN 0.25 MG TAB PO ONE (09:30)
[2022-02-13] MEDS ORDERED: POTASSIUM CHLORIDE 20 MEQ TAB CR PO ONE (09:30)
[2022-02-13] MEDS: SODIUM CHLORIDE 0.9% 1000ML 1,000 ML IV SCH (11:20)
[2022-02-13] MEDS ORDERED: BISACODYL 5 MG TAB EC PO ONE (12:00)
[2022-02-13] MEDS: IBUPROFEN 400 MG TAB PO PRN (12:26)
[2022-02-13] MEDS: MULTIVITAMINS- 12 INJECTION 10 ML, FOLIC ACID MDV 1 MG, THIAMINE HCL INJ 100 MG in SODI... IV SCH (16:57)
[2022-02-13] MEDS: DOCUSATE SODIUM 100 MG CAP PO SCH (16:57)
[2022-02-13] MEDS: RIVAROXABAN 20 MG TABLET PO SCH (16:58)
[2022-02-13] MEDS: TAMSULOSIN HCL 0.4 MG CAP PO SCH (21:25)
[2022-02-13] MEDS: MELATONIN 3 MG TAB PO SCH (21:25)
[2022-02-14] VITALS (30 sets, daily range): BP systolic 117–192; BP diastolic 63–108
[2022-02-14] MEDS: SODIUM CHLORIDE 0.9% 1000ML 1,000 ML IV SCH ×2 (00:40→17:00)
[2022-02-14] MEDS: MULTIVITAMINS- 12 INJECTION 10 ML, FOLIC ACID MDV 1 MG, THIAMINE HCL INJ 100 MG in SODI... IV SCH (01:54)
[2022-02-14] MEDS: CHLORDIAZEPOXIDE HCL 25 MG CAP PO SCH ×3 (05:47→21:25)
[2022-02-14] MEDS: DILTIAZEM HCL 30 MG TAB PO SCH ×4 (05:47→23:44)
[2022-02-14 06:05] LABS: BASOPHILS % 0.3 % (0.0-1.0); EOSINOPHILS # (AUTO) 0.1 (0.0-0.4); EOSINOPHILS % 1.1 % (0.0-6.0); HEMOGLOBIN 12.7 g/dL (14.0-18.0); LYMPHOCYTES # (AUTO) 0.6 (1.0-3.2); LYMPHOCYTES % 8.8 % (18.0-39.1); MEAN CORPUSCULAR HEMOGLOBIN 30.7 pg (28-32); MEAN CORPUSCULAR HGB CONC 33.4 g/dL (31-35); MEAN CORPUSCULAR VOLUME 91.8 fL (81-99); MONOCYTES # (AUTO) 0.7 (0.2-0.8); MONOCYTES % 9.2 % (4.4-11.3); NEUTROPHILS # (AUTO) 5.9 (2.1-6.9); NEUTROPHILS % 80.3 % (38.7-80.0); PLATELET COUNT 218 x10e3/uL (140-360); RED BLOOD COUNT 4.14 x10e6/uL (4.3-5.7); RED CELL DISTRIBUTION WIDTH 13.3 % (11.7-14.4)
[2022-02-14 06:37] LABS: ALBUMIN 2.5 g/dL (3.5-5.0); ALBUMIN/GLOBULIN RATIO 0.6 (0.8-2.0); ANION GAP 15.4 mmol/L (8-16); CALCIUM 8.4 mg/dL (8.4-10.2); CREATININE, SERUM 0.74 mg/dL (0.72-1.25); POTASSIUM 3.4 mmol/L (3.5-5.1)
[2022-02-14] MEDS: ACETAMINOPHEN 325 MG TAB PO PRN ×2 (07:24→21:25)
[2022-02-14] MEDS: PANTOPRAZOLE SOD 40 MG TABEC PO SCH (07:24)
[2022-02-14] MEDS ORDERED: MAGNESIUM SULFATE 2GM/50ML 50 ML IV ONE (08:30)
[2022-02-14] MEDS ORDERED: POTASSIUM CHLORIDE 20 MEQ TAB CR PO ONE (08:45)
[2022-02-14] MEDS: METOPROLOL TARTRATE 50 MG TAB PO SCH (09:05)
[2022-02-14] MEDS: DIGOXIN 0.125 MG TAB PO SCH (09:05)
[2022-02-14] MEDS: LISINOPRIL 10 MG TAB PO SCH (09:06)
[2022-02-14] MEDS: AMIODARONE HCL 200 MG TAB PO SCH (09:06)
[2022-02-14] MEDS: DOCUSATE SODIUM 100 MG CAP PO SCH ×2 (09:06→17:02)
[2022-02-14] MEDS: Vancomycin IV 1 GM in SODIUM CHLORIDE 0.9% 250ML 250 ML IV SCH (17:02)
[2022-02-14] MEDS: RIVAROXABAN 20 MG TABLET PO SCH (17:02)
[2022-02-14 17:07] LABS: CLARITY,URINE CLEAR (CLEAR); COLOR,URINE YELLOW (YELLOW); KETONES,URINE 1+ (NEGATIVE); LEUKOCYTE ESTERASE ,URINE NEGATIVE (NEGATIVE); NITRITE,URINE NEGATIVE (NEGATIVE); PROTEIN,URINE DIPSTICK 2+ (NEGATIVE); URINE UROBILINOGEN 1 mg/dL (0.2 - 1)
[2022-02-14 17:27] LABS: THYROID STIMULATING HORMONE 1.634 uIU/mL (0.350-4.940); WBC,URINE (MAN) 0-5 /HPF (0-5)
[2022-02-14 17:28] LABS: BACTERIA,URINE MODERATE /HPF; RBC,URINE 21-50 /HPF (0-5)
[2022-02-14 17:37] LABS: HIV 1&2 AB SCREEN NON-REACTIVE (NONREACTIVE)
[2022-02-14] MEDS: LORAZEPAM 0.5 MG TAB PO PRN (17:56)
[2022-02-14] MEDS: MELATONIN 3 MG TAB PO SCH (21:02)
[2022-02-14] MEDS: OSELTAMIVIR PHOSPHATE 75 MG CAP PO SCH (21:02)
[2022-02-14] MEDS: TAMSULOSIN HCL 0.4 MG CAP PO SCH (21:02)
[2022-02-15] VITALS (15 sets, daily range): BP systolic 133–171; BP diastolic 67–105
[2022-02-15] MEDS: SODIUM CHLORIDE 0.9% 1000ML 1,000 ML IV SCH ×2 (05:16→19:12)
[2022-02-15] MEDS: Vancomycin IV 1 GM in SODIUM CHLORIDE 0.9% 250ML 250 ML IV SCH ×2 (05:17→17:11)
[2022-02-15] MEDS: DILTIAZEM HCL 30 MG TAB PO SCH ×4 (06:02→23:18)
[2022-02-15] MEDS: CHLORDIAZEPOXIDE HCL 25 MG CAP PO SCH (06:03)
[2022-02-15 06:41] LABS: BASOPHILS % 0.4 % (0.0-1.0); EOSINOPHILS # (AUTO) 0.1 (0.0-0.4); EOSINOPHILS % 1.1 % (0.0-6.0); HEMATOCRIT 38.9 % (38.2-49.6); HEMOGLOBIN 12.8 g/dL (14.0-18.0); LYMPHOCYTES # (AUTO) 0.7 (1.0-3.2); LYMPHOCYTES % 8.7 % (18.0-39.1); MEAN CORPUSCULAR HEMOGLOBIN 30.1 pg (28-32); MEAN CORPUSCULAR HGB CONC 32.9 g/dL (31-35); MEAN CORPUSCULAR VOLUME 91.5 fL (81-99); MONOCYTES # (AUTO) 0.8 (0.2-0.8); NEUTROPHILS # (AUTO) 6.7 (2.1-6.9); NEUTROPHILS % 80.2 % (38.7-80.0); PLATELET COUNT 257 x10e3/uL (140-360); RED BLOOD COUNT 4.25 x10e6/uL (4.3-5.7); RED CELL DISTRIBUTION WIDTH 13.5 % (11.7-14.4)
[2022-02-15 07:01] LABS: ALBUMIN 2.4 g/dL (3.5-5.0); ALBUMIN/GLOBULIN RATIO 0.6 (0.8-2.0); ANION GAP 17.8 mmol/L (8-16); CALCIUM 8.4 mg/dL (8.4-10.2); CREATININE, SERUM 0.7 mg/dL (0.72-1.25); POTASSIUM 3.8 mmol/L (3.5-5.1)
[2022-02-15] MEDS: PANTOPRAZOLE SOD 40 MG TABEC PO SCH (07:15)
[2022-02-15] MEDS: DOCUSATE SODIUM 100 MG CAP PO SCH ×2 (08:09→17:10)
[2022-02-15] MEDS: DIGOXIN 0.125 MG TAB PO SCH (08:10)
[2022-02-15] MEDS: OSELTAMIVIR PHOSPHATE 75 MG CAP PO SCH ×2 (08:10→17:08)
[2022-02-15] MEDS: LISINOPRIL 10 MG TAB PO SCH (08:11)
[2022-02-15] MEDS: AMIODARONE HCL 200 MG TAB PO SCH (08:11)
[2022-02-15] MEDS ORDERED: OSELTAMIVIR PHOSPHATE 75 MG CAP PO SCH (09:00)
[2022-02-15] MEDS: LORAZEPAM 0.5 MG TAB PO PRN (09:02)
[2022-02-15] MEDS ORDERED: CHLORDIAZEPOXIDE HCL 25 MG CAP PO PRN (10:00)
[2022-02-15] MEDS: METOPROLOL TARTRATE 50 MG TAB PO SCH ×2 (10:33→17:13)
[2022-02-15] MEDS ORDERED: ARTIFICIAL TEARS (OPTH) 15 ML BTL OU PRN (14:00)
[2022-02-15] MEDS: IBUPROFEN 400 MG TAB PO PRN (15:35)
[2022-02-15] MEDS: RIVAROXABAN 20 MG TABLET PO SCH (17:09)
[2022-02-15] MEDS: TAMSULOSIN HCL 0.4 MG CAP PO SCH (20:48)
[2022-02-15] MEDS: MELATONIN 3 MG TAB PO SCH (20:48)
[2022-02-16] VITALS (10 sets, daily range): BP systolic 130–164; BP diastolic 70–86
[2022-02-16] MEDS: Vancomycin IV 1 GM in SODIUM CHLORIDE 0.9% 250ML 250 ML IV SCH ×2 (06:00→16:33)
[2022-02-16] MEDS: SODIUM CHLORIDE 0.9% 1000ML 1,000 ML IV SCH (06:00)
[2022-02-16] MEDS: DILTIAZEM HCL 30 MG TAB PO SCH ×4 (06:02→23:42)
[2022-02-16] MEDS: ACETAMINOPHEN 325 MG TAB PO PRN ×2 (06:09→20:29)
[2022-02-16] MEDS: OSELTAMIVIR PHOSPHATE 75 MG CAP PO SCH ×2 (09:18→16:34)
[2022-02-16] MEDS: PANTOPRAZOLE SOD 40 MG TABEC PO SCH (09:18)
[2022-02-16] MEDS: DIGOXIN 0.125 MG TAB PO SCH (09:19)
[2022-02-16] MEDS: DOCUSATE SODIUM 100 MG CAP PO SCH ×2 (09:19→16:34)
[2022-02-16] MEDS: AMIODARONE HCL 200 MG TAB PO SCH (09:19)
[2022-02-16] MEDS: METOPROLOL TARTRATE 50 MG TAB PO SCH ×2 (09:20→16:35)
[2022-02-16] MEDS: LISINOPRIL 10 MG TAB PO SCH (09:20)
[2022-02-16] MEDS ORDERED: AMLODIPINE BESYL5 MG PO (09:36)
[2022-02-16] MEDS ORDERED: ONDANSETRON HCL 4 MG ORAL DISINTEGRATING TAB PO PRN (11:15)
[2022-02-16] MEDS: TAMSULOSIN HCL 0.4 MG CAP PO SCH (20:28)
[2022-02-16] MEDS: MELATONIN 3 MG TAB PO SCH (20:29)
[2022-02-17] VITALS (7 sets, daily range): BP systolic 139–153; BP diastolic 65–95
[2022-02-17 05:40] LABS: BASOPHILS % 0.6 % (0.0-1.0); EOSINOPHILS # (AUTO) 0.3 (0.0-0.4); EOSINOPHILS % 5.2 % (0.0-6.0); HEMATOCRIT 36.2 % (38.2-49.6); LYMPHOCYTES # (AUTO) 0.6 (1.0-3.2); LYMPHOCYTES % 11.8 % (18.0-39.1); MEAN CORPUSCULAR HEMOGLOBIN 30.5 pg (28-32); MEAN CORPUSCULAR HGB CONC 33.1 g/dL (31-35); MEAN CORPUSCULAR VOLUME 92.1 fL (81-99); MONOCYTES # (AUTO) 0.5 (0.2-0.8); MONOCYTES % 9.7 % (4.4-11.3); NEUTROPHILS # (AUTO) 3.7 (2.1-6.9); NEUTROPHILS % 71.9 % (38.7-80.0); PLATELET COUNT 311 x10e3/uL (140-360); RED BLOOD COUNT 3.93 x10e6/uL (4.3-5.7); RED CELL DISTRIBUTION WIDTH 13.5 % (11.7-14.4)
[2022-02-17] MEDS: DILTIAZEM HCL 30 MG TAB PO SCH ×2 (06:00→11:43)
[2022-02-17 06:01] LABS: ANION GAP 14.5 mmol/L (8-16); CALCIUM 8.4 mg/dL (8.4-10.2); CREATININE, SERUM 0.68 mg/dL (0.72-1.25); POTASSIUM 3.5 mmol/L (3.5-5.1)
[2022-02-17] MEDS: Vancomycin IV 1 GM in SODIUM CHLORIDE 0.9% 250ML 250 ML IV SCH (06:39)
[2022-02-17] MEDS: PANTOPRAZOLE SOD 40 MG TABEC PO SCH (08:09)
[2022-02-17] MEDS: DIGOXIN 0.125 MG TAB PO SCH (08:09)
[2022-02-17] MEDS: METOPROLOL TARTRATE 50 MG TAB PO SCH (08:10)
[2022-02-17] MEDS: DOCUSATE SODIUM 100 MG CAP PO SCH (08:10)
[2022-02-17] MEDS: LISINOPRIL 10 MG TAB PO SCH (08:10)
[2022-02-17] MEDS: OSELTAMIVIR PHOSPHATE 75 MG CAP PO SCH (08:10)
[2022-02-17] MEDS: AMIODARONE HCL 200 MG TAB PO SCH (08:10)
[2022-02-17] MEDS ORDERED: METOPROLOL TART50 MG PO (14:13)
[2022-02-17] MEDS ORDERED: TAMIFLU75 MG PO (14:13)
[2022-02-17] MEDS ORDERED: DIGOXIN125 MCG PO (14:13)
[2022-02-17] MEDS ORDERED: AMIODARONE HCL200 MG PO (14:13)
[2022-02-17] MEDS ORDERED: FLOMAX0.4 MG PO (14:13)
[2022-02-17] MEDS ORDERED: CARDIZEM30 MG PO (14:13)
[2022-02-18] MEDS ORDERED: RIVAROXABAN 20 MG TABLET PO SCH (17:00)
== END 2022-02-17 16:00 | disposition home or self-care (01) | DRG 871 ==
LOC: ER 18:29 → ERHOLD 21:45 → ICU 22:30 → MED/SURG3 02-15 16:19
PROVIDERS: ADMIT Internal Medicine; ATTEND Internal Medicine
PROC: 3E03329 Introduction of Other Anti-infective into Peripheral Vein, Percutaneous Approach (ICD-10-PCS; 2022-02-09)
PROC: 02HV33Z Insertion of Infusion Device into Superior Vena Cava, Percutaneous Approach (ICD-10-PCS; principal; 2022-02-11)
DX: A41.9 Sepsis, unspecified organism (principal); J10.00 Influenza due to other identified influenza virus with unspecified type of pneumonia; J18.9 Pneumonia, unspecified organism; I48.20 Chronic atrial fibrillation, unspecified; E87.20 Acidosis, unspecified; E87.1 Hypo-osmolality and hyponatremia; F10.231 Alcohol dependence with withdrawal delirium; I82.611 Acute embolism and thrombosis of superficial veins of right upper extremity; D63.8 Anemia in other chronic diseases classified elsewhere; I50.9 Heart failure, unspecified; I11.0 Hypertensive heart disease with heart failure; K70.10 Alcoholic hepatitis without ascites; R51.9 Headache, unspecified; E78.5 Hyperlipidemia, unspecified; M19.90 Unspecified osteoarthritis, unspecified site; E87.6 Hypokalemia; N40.0 Benign prostatic hyperplasia without lower urinary tract symptoms; R31.9 Hematuria, unspecified; E83.42 Hypomagnesemia; W01.0XXA Fall on same level from slipping, tripping and stumbling without subsequent striking against object, initial encounter; Y92.239 Unspecified place in hospital as the place of occurrence of the external cause; Z79.82 Long term (current) use of aspirin; Z82.49 Family history of ischemic heart disease and other diseases of the circulatory system; Z20.822 Contact with and (suspected) exposure to COVID-19
CPT/HCPCS: 36415; 36569; 70450; 71045; 71260; 74177; 80048; 80053; 80061; 80202; 81001; 82550; 82553; 83605; 83690; 83735; 84436; 84439; 84443; 84479; 84484; 85025; 85651; 86039; 86140; 86200; 86431; 87040; 87086; 87390; 87400; 87536; 93005; 93041; 93971; 94799; 97139; 99251; 99284; G0433; G0435; J0360; J0692; J0696; J1160; J2543; J3370; J3411; J3475; J3480; J7030; J7050; Q9967

== ENCOUNTER 2024-12-29 13:03 | Emergency (ER) | payer MEDICARE ==
[~2024-12-29] VITALS: Ht 175.3 cm; Wt 104.3 kg
[~2024-12-29 13:03] MED LIST changes: +AMIODARONE HCL200 MG PO; +AMLODIPINE BESYL5 MG PO; +CARDIZEM30 MG PO; +DIGOXIN125 MCG PO; +FLOMAX0.4 MG PO; +METOPROLOL TART50 MG PO; +TAMIFLU75 MG PO
[2024-12-29] MEDS ORDERED: CLONIDINE HCL0.1 MG PO (14:27)
[2024-12-29 14:40] VITALS: PULSE 85; RESP 16; TEMP 98.4; O2SAT 96
== END 2024-12-29 14:38 | disposition home or self-care (01) ==
LOC: ER 13:57
DX: I10 Essential (primary) hypertension (principal); M54.6 Pain in thoracic spine; E78.5 Hyperlipidemia, unspecified; I48.91 Unspecified atrial fibrillation; Z86.73 Personal history of transient ischemic attack (TIA), and cerebral infarction without residual deficits
CPT/HCPCS: 99283